=== PATIENT | female | born 1955 | race Two or more races ===

== ENCOUNTER 2025-11-14 21:11 | Emergency (ER) | payer OTHER ==
[~2025-11-14] VITALS: Ht 162.6 cm; Wt 55.8 kg
[~2025-11-14 21:11] MED LIST: AMARYL PO; CARVEDILOL12.5 MG PO; LISINOPRIL-HCTZ1 T15 PO; METFORMIN HCL500 MG PO
[2025-11-14] MEDS ORDERED: FAMOTIDINE/PF 20 MG/2 ML VIAL IV STA (22:07)
[2025-11-14] MEDS ORDERED: 0.9 % SODIUM CHLORIDE 1,000 ML IV STA ×2 (22:07→23:52)
[2025-11-14] MEDS ORDERED: ONDANSETRON HCL 2 MG/ML VIAL IV STA (22:07)
[2025-11-14] MEDS ORDERED: FAMOTIDINE/PF 20 MG/2 ML VIAL ONE (22:36)
[2025-11-14] MEDS ORDERED: ONDANSETRON HCL 2 MG/ML VIAL ONE (22:36)
[2025-11-14 23:25] LABS: BASO % 0.4 % (0.1-1.2); EOS # 0.10 (0.04-0.54); EOS % 1.0 % (0.7-7.0); LYMPH # 1.00 (1.18-3.74); LYMPH % 9.9 % (19.3-53.1); MEAN PLATELET VOLUME 10.80 fl (9.4-12.4); MONO # 0.48 (0.24-0.82); MONO % 4.8 % (4.7-12.5); NEUT # 8.28 (1.56-6.13); NEUT % 82.3 % (34.0-71.1); RED CELL DISTRIBUTION WIDTH 13.4 % (11.6-14.4)
[2025-11-14 23:32] LABS: INR 1.0
[2025-11-14 23:49] LABS: COVID-19 AG NEGATIVE (NEGATIVE)
[2025-11-14 23:53] LABS: ERYTHROCYTE SEDIMENTATION RATE 15 mm/hr (0-30)
[2025-11-14] MEDS ORDERED: LABETALOL HCL 20MG/4ML SYRINGE IV STA (23:54)
[2025-11-15] MEDS ORDERED: LABETALOL HCL 100 MG/20 ML ML ONE (00:20)
[2025-11-15 00:29] LABS: ALT/SGPT 21 U/L (12-78); AST/SGOT 13 U/L (15-37); BILIRUBIN TOTAL 0.43 mg/dL (0.3-1.2); BUN CREA RATIO 19 (7.0-25.0); CREATININE SERUM 0.91 mg/dL (0.55-1.02); GFR 60.77; GLOBULINA 3.0 G/DL (2.4-3.5)
[2025-11-15 00:31] LABS: GLUCOSE FASTING 242 mg/dL (65-100); OSMOLALITY SERUM 291 MOSM/KG (275-295)
[2025-11-15 01:52] LABS: URINE APPEARANCE Clear; URINE BILIRRUBIN Negative (NEGATIVE); URINE BLOOD Negative; URINE COLOR Yellow; URINE KETONE Trace (NEGATIVE); URINE LEUKOCYTE Negative; URINE NITRATE Negative; URINE PROTEIN Negative (NEGATIVE); URINE UROBILINOGEN 0.2 E.U./dl
[2025-11-15 01:56] LABS: URINE EPITHELIAL CELLS 1.6 uL (0.0-38.8); URINE WBC 40.9 uL (0.0-23.2)
[2025-11-15 02:04] LABS: URINE BACTERIA > 9821.5 uL (0.0-1933); URINE CAST 0.00 uL (0.0-1.40); URINE GLUCOSE >=1000 MG/DL (NEGATIVE); URINE RBC 0.9 uL (0.0-20.8)
[2025-11-15] MEDS ORDERED: PEPCID40 MG PO (04:55)
[2025-11-15] MEDS ORDERED: ONDANSETRON ODT4 MG PO (04:55)
== END 2025-11-15 05:09 ==
LOC: ER 21:11
PROVIDERS: Physician Assistant Medical
DX: E86.0 Dehydration (principal); K52.89 Other specified noninfective gastroenteritis and colitis; R11.10 Vomiting, unspecified; I10 Essential (primary) hypertension; E11.9 Type 2 diabetes mellitus without complications; Z79.84 Long term (current) use of oral hypoglycemic drugs; Z20.822 Contact with and (suspected) exposure to COVID-19
CPT/HCPCS: 36415; 74177; 93005; 96365; 96366; 99284; J2405; J3490 ×2; J7030 ×2; Q9965